=== PATIENT | female | born 1935 | race Caucasian/White ===

== ENCOUNTER 2020-02-10 19:33 | Emergency (ER) | payer MEDICARE, MEDICAID ==
[~2020-02-10] VITALS: Ht 142.2 cm; Wt 73.0 kg
--- NOTE | 2020-02-10 20:08 | NUR ---
PT TO ROOM 7 PER DEN. PT WAS USING HER WALKER, AND WAS AMBULATING TO THE MAILBOX WHEN HER KNEES GAVE. SHE STATES "I DID NOT FALL ALL THE WAY DOWN, I USED MY WALKER TO GO TO MY KNEES. I PUSHED MY LIFE ALERT AND THE SQUAD CAME AND HELPED ME INTO MY HOUSE, AFTER THEY LEFT I NOTICED MY RIGHT ANKLE WAS SWOLLEN." PT IS A/O X3. RN PLACED PATIENT ON 2L OXYGEN PER NC DUE TO SATS IN THE HIGH 80'S LOW 90'S. [facility] NOT WANT TO GO TO [facility],"I CAN LIVE ALONE JUST FINE" XRAY IN AT BEDSIDE.
--- NOTE | 2020-02-10 20:41 | NUR ---
OXYGEN OFF TO ENSURE PATIENT SATS REMAIN GREATER 90%. VITALS CHARTED. PT REMAINS A/O X4.
--- NOTE | 2020-02-10 20:51 | NUR ---
PA AND TECH IN TO WRAP ANKLE. PA INFORMS PATIENT THAT SHE WILL BE DISCHARGED. PATIENT CALLING A CAB FOR TRANSPORTATION HOME.
--- NOTE | 2020-02-10 21:03 | NUR ---
DISCHARGE INSTRUCTIONS GIVEN TO PATIENT. PT VERBALIZES UNDERSTANDING OF ALL INSTRUCTIONS AND FOLLOW UP. PT OUT OF ED PER WHEELCHAIR. WALKER WITH PATIENT.
[2020-02-10 21:04] VITALS: BP 122/75
== END 2020-02-10 21:07 | disposition home or self-care (01) ==
LOC: ED 20:25
DX: S93.491A Sprain of other ligament of right ankle, initial encounter (principal); I10 Essential (primary) hypertension; E11.9 Type 2 diabetes mellitus without complications; X50.1XXA Overexertion from prolonged static or awkward postures, initial encounter; Y93.89 Activity, other specified; Y92.098 Other place in other non-institutional residence as the place of occurrence of the external cause; Y99.8 Other external cause status
CPT/HCPCS: 99283

== ENCOUNTER 2020-03-05 07:05 | Emergency (ER) | payer MEDICARE, MEDICAID ==
[~2020-03-05] VITALS: Ht 142.2 cm; Wt 74.0 kg
--- NOTE | 2020-03-05 07:34 | NUR ---
PT BIB [facility] AFTER [facility] WHILE USING PT'S FRONT WALKER. PT REPORTS RIGHT LEG GAVE OUT AND SHE LANDED MOSTLY ON HER RIGHT LEG. PT DENIES HEAD OR NECK PAIN. PT DENIES CP, DIZZINESS, SOB PRIOR TO FALL. PT TO RADIOLOGY.
--- NOTE | 2020-03-05 07:45 | NUR ---
PT OFFERED MASK WHILE PT IN THE ER AND SHE REFUSED STATING "I CAN'T BREATHE WITH THE MASK ON."
--- NOTE | 2020-03-05 07:55 | NUR ---
PT STILL IN RAD.
[2020-03-05 08:05] LABS: BASOPHILS # (AUTO) 0.02 x10^3/uL (0-0.1); BASOPHILS % (AUTO) 0 % (0-1); EOSINOPHILS # (AUTO) 0.23 x10^3/uL (0-0.4); EOSINOPHILS % (AUTO) 2 % (1-7); LYMPHOCYTES # (AUTO) 1.85 x10^3/uL (1-3.4); LYMPHOCYTES % (AUTO) 15 % (22-44); MD NO; MEAN CORPUSCULAR HEMOGLOBIN 26.3 pg (27.0-34.8); MEAN CORPUSCULAR HGB CONC 32.7 g/dL (32.4-35.8); MEAN CORPUSCULAR VOLUME 80.4 fL (80-100); MEAN PLATELET VOLUME 7.8 fL (7.4-10.4); MONOCYTES # (AUTO) 1.01 x10^3/uL (0.2-0.8); MONOCYTES % (AUTO) 8 % (2-9); NEUTROPHILS # (AUTO) 9.04 x10^3/uL (1.8-6.8); NEUTROPHILS % (AUTO) 74 % (42-75); PLATELET COUNT 389 x10^3/uL (130-400); RED BLOOD COUNT 5.85 x10^6/uL (3.82-5.3); RED CELL DISTRIBUTION WIDTH 18.8 % (9.6-15.2)
[2020-03-05 08:19] LABS: ALANINE AMINOTRANSFERASE 14 U/L (12-78); ALBUMIN 3.6 g/dL (3.4-5.0); ANION GAP 7 mmol/L (5-15); CALCIUM 9.3 mg/dL (8.5-10.1); CHLORIDE 110 mmol/L (98-107); CREATININE 0.56 mg/dL (0.55-1.02)
[2020-03-05 08:21] LABS: ALKALINE PHOSPHATASE 65 U/L (45-117); BILIRUBIN,TOTAL 0.4 mg/dL (0.2-1.0); TOTAL PROTEIN 7.7 g/dL (6.4-8.2)
[2020-03-05 09:00] VITALS: BP 130/53
--- NOTE | 2020-03-05 09:00 | NUR ---
PT UP TO BEDSIDE COMMODE. PT TO BE ADMITTED.
[2020-03-05] MEDS ORDERED: ALBU8.5H8 INH (09:11)
[2020-03-05] MEDS ORDERED: ELIQUIS PO (09:11)
[2020-03-05] MEDS ORDERED: METFORMIN PO (09:11)
[2020-03-05] MEDS ORDERED: ATORVASTATIN PO (09:11)
[2020-03-05] MEDS ORDERED: OMEP-110 PO (09:11)
--- NOTE | 2020-03-05 10:18 | NUR ---
PT REQUESTING TO LEAVE STATING" I AM FINE. I KNOW WHAT HAPPENED AND MY KNEE GAVE OUT. I HAVE TWO CATS TO TAKE CARE OF." DR. STALLWORTH AWARE.
== END 2020-03-05 10:39 | disposition left against medical advice (07) ==
LOC: ED 08:15 → UNDOADMIN 09:51 → EDIP 09:51 → ED 10:39
DX: S83.91XA Sprain of unspecified site of right knee, initial encounter (principal); S80.11XA Contusion of right lower leg, initial encounter; R29.810 Facial weakness; J44.9 Chronic obstructive pulmonary disease, unspecified; K21.9 Gastro-esophageal reflux disease without esophagitis; I10 Essential (primary) hypertension; E78.5 Hyperlipidemia, unspecified; E11.9 Type 2 diabetes mellitus without complications; Z90.710 Acquired absence of both cervix and uterus; Z88.5 Allergy status to narcotic agent; Z90.49 Acquired absence of other specified parts of digestive tract; Z87.891 Personal history of nicotine dependence; W18.30XA Fall on same level, unspecified, initial encounter; Y93.89 Activity, other specified; Y92.009 Unspecified place in unspecified non-institutional (private) residence as the place of occurrence of the external cause; Y99.8 Other external cause status
CPT/HCPCS: 36415; 70450; 80053; 85025; 99285

== ENCOUNTER 2020-07-30 23:26 | Emergency (ER) | payer MEDICARE, MEDICAID ==
[~2020-07-30] VITALS: Ht 142.2 cm; Wt 80.0 kg
[~2020-07-30 23:26] MED LIST: ALBU8.5H8 INH; ATORVASTATIN PO; ELIQUIS PO; METFORMIN PO; OMEP-110 PO
[2020-07-30] MEDS ORDERED: PLEASE ENTER HEIGHT AND WEIGHT MC SCH (23:45)
[2020-07-30 23:56] LABS: BASOPHILS # (AUTO) 0.03 x10^3/uL (0-0.1); BASOPHILS % (AUTO) 0 % (0-1); EOSINOPHILS # (AUTO) 0.21 x10^3/uL (0-0.4); EOSINOPHILS % (AUTO) 2 % (1-7); LYMPHOCYTES # (AUTO) 1.86 x10^3/uL (1-3.4); LYMPHOCYTES % (AUTO) 17 % (22-44); MD NO; MEAN CORPUSCULAR HEMOGLOBIN 27.5 pg (27.0-34.8); MEAN CORPUSCULAR HGB CONC 33.4 g/dL (32.4-35.8); MEAN CORPUSCULAR VOLUME 82.3 fL (80-100); MEAN PLATELET VOLUME 7.9 fL (7.4-10.4); MONOCYTES # (AUTO) 0.84 x10^3/uL (0.2-0.8); MONOCYTES % (AUTO) 8 % (2-9); NEUTROPHILS # (AUTO) 7.84 x10^3/uL (1.8-6.8); NEUTROPHILS % (AUTO) 73 % (42-75); PLATELET COUNT 389 x10^3/uL (130-400); RED BLOOD COUNT 5.95 x10^6/uL (3.82-5.3)
[2020-07-31] MEDS ORDERED: SODIUM CHLORIDE FLUSH 10ML SYR IVF ONE
[2020-07-31 00:07] LABS: ALANINE AMINOTRANSFERASE 30 U/L (12-78); ALBUMIN 3.8 g/dL (3.4-5.0); ANION GAP 9 mmol/L (5-15); CALCIUM 10.7 mg/dL (8.5-10.1); CHLORIDE 102 mmol/L (98-107); CREATININE 0.69 mg/dL (0.55-1.02)
[2020-07-31] MEDS ORDERED: METHYLNALTREXONE 12 MG/0.6 ML SYR SQ ONE ×2 (00:07)
[2020-07-31 00:10] LABS: ALKALINE PHOSPHATASE 67 U/L (45-117); BILIRUBIN,TOTAL 0.5 mg/dL (0.2-1.0); TOTAL PROTEIN 8.2 g/dL (6.4-8.2)
--- NOTE | 2020-07-31 01:00 | NUR ---
PATIENT RESTING IN BED, AROUSABLE TO VERBAL STIMULI. SHE STILL ENDORSES ABDOMINAL DISCOMFORT. WILL CONTINUE TO MONITOR.
[2020-07-31] MEDS ORDERED: OXYcodone/APAP 10/325MG TABLET ONE (01:48)
[2020-07-31] MEDS ORDERED: OXYcodone/APAP 10/325MG TABLET PO ONE (02:00)
--- NOTE | 2020-07-31 02:27 | NUR ---
PATIENT RESTING IN BED, AROUSABLE TO VERBAL STIMULI. SHE STILL ENDORSES ABDOMINAL DISCOMFORT. SHE DENIES NEED FOR TOILETING AT THIS TIME. WILL CONTINUE TO MONITOR.
[2020-07-31 02:28] VITALS: BP 126/68
--- NOTE | 2020-07-31 03:30 | NUR ---
SPOKE WITH FAMILY MEMBER AT PROVIDED PHONE NUMBER. THEY STATED THAT THEY WOULD BE HOME AND AWAITING THE PATIENT'S ARRIVAL. THEY WILL ASSIST HER INSIDE.
[2020-07-31] MEDS ORDERED: OMNIPAQUE 350 MG/ML, 100ML BOTTLE ONE (05:59)
== END 2020-07-31 04:05 | disposition home or self-care (01) ==
LOC: ED 07-31 00:09
DX: K59.00 Constipation, unspecified (principal); R10.84 Generalized abdominal pain; R11.0 Nausea; R94.31 Abnormal electrocardiogram [ECG] [EKG]; I10 Essential (primary) hypertension; J44.9 Chronic obstructive pulmonary disease, unspecified; Z87.891 Personal history of nicotine dependence; Z90.710 Acquired absence of both cervix and uterus
CPT/HCPCS: 36415; 74177; 80053; 83690; 85025; 93005; 96372; 99285; Q9967

== ENCOUNTER 2020-08-22 10:11 | Inpatient (IN) | payer MEDICARE, MEDICAID ==
[~2020-08-22] VITALS: Ht 142.2 cm; Wt 73.7 kg
--- NOTE | 2020-08-22 10:28 | NUR ---
pt biba, report taken from ems. pt c/o sternal cp onset 2 days ago after striking chest on chair with mechanical glf. pt denies neck pain, denies head injury, denies loc. pt also notes exacerbation of sob (has copd) this am. pt only able to speak approx 4 words without taking breath pt has chronic cough, denies any other sx all monitors in place, call light in reach, ekg taken on arrival by edt. cxr ordered, awaiting further orders at this time.
[2020-08-22] MEDS ORDERED: NEOSPORIN OINT. PKT 1 PACKET ONE (10:43)
--- NOTE | 2020-08-22 10:50 | NUR ---
PT TAKEN TO CT SCAN. DAUGHTER WHO IS WAITING IN LOBBY GIVEN UPDATE.
[2020-08-22] MEDS ORDERED: MORPHINE SULFATE 4 MG/ML, 1ML IVPush PRN (12:00)
[2020-08-22] MEDS ORDERED: CEFTRIAXONE PMX 1GM/50ML 50 ML IVPB ONE (12:00)
[2020-08-22] MEDS ORDERED: MORPHINE SULFATE 4 MG/ML, 1ML ONE (12:14)
[2020-08-22] MEDS ORDERED: ONDANSETRON 2MG/ML, 2ML ONE (12:14)
[2020-08-22] MEDS ORDERED: CEFTRIAXONE PMX 1GM/50ML 50 ML ONE (12:14)
[2020-08-22] MEDS ORDERED: DOXYCYCLINE 100MG TABLET ONE (12:15)
[2020-08-22 12:31] LABS: MEAN CORPUSCULAR HEMOGLOBIN 27.6 pg (27.0-34.8); MEAN CORPUSCULAR HGB CONC 32.6 g/dL (32.4-35.8); PLATELET COUNT 351 x10^3/uL (130-400); RED BLOOD COUNT 5.47 x10^6/uL (3.82-5.3)
[2020-08-22 12:39] LABS: ALBUMIN 3.3 g/dL (3.4-5.0); ANION GAP 5 mmol/L (5-15); CALCIUM 9.4 mg/dL (8.5-10.1); CHLORIDE 106 mmol/L (98-107)
[2020-08-22] MEDS ORDERED: stool softener PO (12:40)
[2020-08-22] MEDS ORDERED: MULT-658 PO (12:40)
[2020-08-22] MEDS ORDERED: calcium PO (12:40)
--- NOTE | 2020-08-22 12:42 | NUR ---
pt medicated per emar for sternal pain. pt and daughter updated with poc and results by RN and MD, plan to admit, pt agreeable. pt unable to recall all home meds, RN to call pts pharmacy [facility] [address]. all monitors in place, nsr on engine monitor. pt a&o, resps even and unlabored, now able to speak in full sentences without taking a breath.
[2020-08-22 12:56] LABS: BASOPHILS # (AUTO) 0.06 x10^3/uL (0-0.1); BASOPHILS % (AUTO) 0 % (0-1); EOSINOPHILS % (AUTO) 1 % (1-7); LYMPHOCYTES # (AUTO) 1.35 x10^3/uL (1-3.4); LYMPHOCYTES % (AUTO) 10 % (22-44); MD SCAN; MONOCYTES # (AUTO) 1.12 x10^3/uL (0.2-0.8); MONOCYTES % (AUTO) 8 % (2-9); NEUTROPHILS # (AUTO) 11.39 x10^3/uL (1.8-6.8); NEUTROPHILS % (AUTO) 81 % (42-75)
[2020-08-22] MEDS ORDERED: DOXYCYCLINE 100MG TABLET PO ONE (13:00)
[2020-08-22] MEDS ORDERED: SODIUM CHLORIDE FLUSH 10ML SYR IVF ONE (13:00)
[2020-08-22] MEDS ORDERED: SYMBICORT INH (13:36)
[2020-08-22] MEDS ORDERED: PANT40TA6 PO (13:36)
[2020-08-22] MEDS ORDERED: ATOR20TA37 PO (13:36)
[2020-08-22] MEDS ORDERED: LISINOPRIL PO (13:36)
[2020-08-22] MEDS ORDERED: APIX5TAB PO (13:36)
[2020-08-22] MEDS ORDERED: FAMO40TA61 PO (13:36)
[2020-08-22] MEDS ORDERED: METF500T17 PO (13:36)
[2020-08-22] MEDS ORDERED: LEVO100T PO (13:36)
[2020-08-22] MEDS ORDERED: METO25TA35 PO (13:36)
[2020-08-22] MEDS ORDERED: FLONASE NAS (13:36)
[2020-08-22] MEDS ORDERED: LINA145C PO (13:36)
[2020-08-22] MEDS ORDERED: ALBUTEROL INH (13:36)
[2020-08-22] MEDS ORDERED: SPIRIVA INH (13:36)
[2020-08-22] MEDS ORDERED: OXYC-307 PO (13:36)
--- NOTE | 2020-08-22 13:36 | NUR ---
REPORT GIVEN TO RECEIVING RN ANGELA. MED REC COMPLETED AFTER CALLING PT'S PHARMACY. PT AWAITING TRANSPORT TO MED SURG AT THIS TIME. PER EDMD RAFAL, PT IS NOT SUSPICIOUS FOR COVID AND COVID TEST NOT INDICATED AT THIS TIME.
--- NOTE | 2020-08-22 13:45 | NUR ---
[facility] AT BEDSIDE TO TRANSPORT PT TO MED SURG FLOOR. PIV SITE TO LEFT UPPER ARM REDDENED, STILL FLUSHES WELL AND HAS GOOD BLOOD RETURN. PIV PLACED TO RT HAND FOR ADDITIONAL ACCESS. PT IS A&O, RESPS EVEN AND UNLABORED, STATES PAIN RESOLVED. UPDATED REPORT TO [facility] AT BEDSIDE.
[2020-08-22 14:22] VITALS: BP 135/78
[2020-08-22 14:26] VITALS: BP 135/78
[2020-08-22] MEDS ORDERED: hydrALAzine 20 MG/ML, 1ML IVPush PRN (15:30)
[2020-08-22] MEDS ORDERED: LABETALOL 5MG/ML, 20ML IVPush PRN (15:30)
[2020-08-22] MEDS ORDERED: morphine SULFATE 10 MG/ML, 1ML IVPush PRN (15:30)
[2020-08-22] MEDS ORDERED: PROMETHAZINE 25 MG/ML, 1ML IM PRN (15:30)
[2020-08-22] MEDS ORDERED: ONDANSETRON 2MG/ML, 2ML IVPush PRN (15:30)
[2020-08-22] MEDS: OXYcodone/APAP 5/325MG TABLET PO PRN ×4 (16:30→23:46)
[2020-08-22] MEDS ORDERED: CEFTRIAXONE PMX 1GM/50ML 50 ML IV SCH (17:00)
[2020-08-22] MEDS: metFORMIN 500 MG TABLET PO SCH (17:22)
[2020-08-22 19:36] VITALS: BP 104/65
[2020-08-22 20:08] VITALS: BP 125/78
[2020-08-22] MEDS: APIXABAN 5 MG TABLET PO SCH (20:15)
[2020-08-22] MEDS: ATORVASTATIN 20 MG TABLET PO SCH (20:15)
[2020-08-22] MEDS: METOPROLOL TARTRATE 25 MG TAB PO SCH (20:15)
[2020-08-22] MEDS: DOXYCYCLINE 100MG TABLET PO SCH (23:50)
[2020-08-23 01:45] VITALS: BP 157/81
[2020-08-23 05:01] LABS: CHLORIDE 108 mmol/L (98-107)
[2020-08-23 05:02] LABS: BASOPHILS # (AUTO) 0.02 x10^3/uL (0-0.1); BASOPHILS % (AUTO) 0 % (0-1); EOSINOPHILS # (AUTO) 0.22 x10^3/uL (0-0.4); EOSINOPHILS % (AUTO) 2 % (1-7); LYMPHOCYTES # (AUTO) 1.56 x10^3/uL (1-3.4); LYMPHOCYTES % (AUTO) 14 % (22-44); MD NO; MEAN CORPUSCULAR HEMOGLOBIN 27.7 pg (27.0-34.8); MEAN CORPUSCULAR HGB CONC 33.1 g/dL (32.4-35.8); MEAN PLATELET VOLUME 7.9 fL (7.4-10.4); MONOCYTES # (AUTO) 0.85 x10^3/uL (0.2-0.8); MONOCYTES % (AUTO) 8 % (2-9); NEUTROPHILS # (AUTO) 8.22 x10^3/uL (1.8-6.8); NEUTROPHILS % (AUTO) 76 % (42-75); PLATELET COUNT 347 x10^3/uL (130-400); RED BLOOD COUNT 5.28 x10^6/uL (3.82-5.3)
[2020-08-23 05:06] LABS: ALANINE AMINOTRANSFERASE 18 U/L (12-78); ALKALINE PHOSPHATASE 60 U/L (45-117); ANION GAP 6 mmol/L (5-15); BILIRUBIN,TOTAL 0.4 mg/dL (0.2-1.0); CREATININE 0.54 mg/dL (0.55-1.02); TOTAL PROTEIN 6.9 g/dL (6.4-8.2)
[2020-08-23] MEDS: PANTOPRAZOLE 40MG TABLET PO SCH (05:24)
[2020-08-23] MEDS: LEVOTHYROXINE 100 MCG TABLET PO SCH (05:24)
[2020-08-23] MEDS: OXYcodone/APAP 5/325MG TABLET PO PRN ×4 (05:26→20:07)
[2020-08-23 06:42] VITALS: BP 156/78
[2020-08-23] MEDS: APIXABAN 5 MG TABLET PO SCH ×2 (08:59→20:05)
[2020-08-23] MEDS: FAMOTIDINE 20 MG TABLET PO SCH (08:59)
[2020-08-23] MEDS: metFORMIN 500 MG TABLET PO SCH ×2 (08:59→16:16)
[2020-08-23] MEDS: METOPROLOL TARTRATE 25 MG TAB PO SCH ×2 (08:59→20:05)
[2020-08-23] MEDS: DOXYCYCLINE 100MG TABLET PO SCH ×2 (08:59→20:05)
[2020-08-23] MEDS: SENNA/DOCUSATE TABLET PO SCH ×2 (08:59→20:05)
[2020-08-23] MEDS ORDERED: FAMOTIDINE 40 MG TABLET PO SCH (09:00)
[2020-08-23 12:40] VITALS: BP 152/80
[2020-08-23 18:36] VITALS: BP 124/69
[2020-08-23] MEDS: ATORVASTATIN 20 MG TABLET PO SCH (20:05)
[2020-08-23] MEDS ORDERED: MAGNESIUM HYDROXIDE 8%, 30ML UDC PO SCH (21:00)
[2020-08-24 00:07] VITALS: BP 135/76
[2020-08-24] MEDS: OXYcodone/APAP 5/325MG TABLET PO PRN ×3 (04:28→13:21)
[2020-08-24] MEDS: LEVOTHYROXINE 100 MCG TABLET PO SCH (05:29)
[2020-08-24] MEDS: PANTOPRAZOLE 40MG TABLET PO SCH (05:29)
[2020-08-24 05:58] LABS: BASOPHILS # (AUTO) 0.01 x10^3/uL (0-0.1); BASOPHILS % (AUTO) 0 % (0-1); EOSINOPHILS # (AUTO) 0.29 x10^3/uL (0-0.4); EOSINOPHILS % (AUTO) 4 % (1-7); LYMPHOCYTES % (AUTO) 21 % (22-44); MD NO; MEAN CORPUSCULAR HEMOGLOBIN 27.4 pg (27.0-34.8); MEAN CORPUSCULAR HGB CONC 32.3 g/dL (32.4-35.8); MEAN PLATELET VOLUME 7.9 fL (7.4-10.4); MONOCYTES # (AUTO) 0.74 x10^3/uL (0.2-0.8); MONOCYTES % (AUTO) 10 % (2-9); NEUTROPHILS % (AUTO) 65 % (42-75); PLATELET COUNT 361 x10^3/uL (130-400); RED BLOOD COUNT 5.17 x10^6/uL (3.82-5.3); RED CELL DISTRIBUTION WIDTH 17.7 % (9.6-15.2)
[2020-08-24 06:45] VITALS: BP 119/70
[2020-08-24] MEDS: SENNA/DOCUSATE TABLET PO SCH (08:54)
[2020-08-24] MEDS: metFORMIN 500 MG TABLET PO SCH ×2 (08:54→17:00)
[2020-08-24] MEDS: METOPROLOL TARTRATE 25 MG TAB PO SCH (08:55)
[2020-08-24] MEDS: APIXABAN 5 MG TABLET PO SCH (08:55)
[2020-08-24] MEDS: FAMOTIDINE 20 MG TABLET PO SCH (08:55)
[2020-08-24] MEDS: DOXYCYCLINE 100MG TABLET PO SCH (08:57)
[2020-08-24] MEDS ORDERED: AMOXICILLIN/CLAV 875-125MG TABLET PO SCH (09:00)
[2020-08-24 13:22] VITALS: BP 133/78
[2020-08-24] MEDS ORDERED: AMOX1TAB12 PO (16:50)
[2020-08-24] MEDS ORDERED: DOXY100T PO (16:50)
== END 2020-08-24 18:26 | disposition home or self-care (01) | DRG 871 ==
LOC: ED 11:36 → EDIP 12:28 → 4NW 14:03
PROVIDERS: ADMIT Internal Medicine; ATTEND Internal Medicine
DX: A41.9 Sepsis, unspecified organism (principal); J15.6 Pneumonia due to other Gram-negative bacteria; S22.20XA Unspecified fracture of sternum, initial encounter for closed fracture; S52.209A Unspecified fracture of shaft of unspecified ulna, initial encounter for closed fracture; E87.1 Hypo-osmolality and hyponatremia; J44.0 Chronic obstructive pulmonary disease with (acute) lower respiratory infection; E03.9 Hypothyroidism, unspecified; E11.9 Type 2 diabetes mellitus without complications; E78.5 Hyperlipidemia, unspecified; E86.1 Hypovolemia; I10 Essential (primary) hypertension; I48.91 Unspecified atrial fibrillation; Z66 Do not resuscitate; K21.9 Gastro-esophageal reflux disease without esophagitis; G89.29 Other chronic pain; M54.9 Dorsalgia, unspecified; R29.810 Facial weakness; W18.39XA Other fall on same level, initial encounter; Z90.710 Acquired absence of both cervix and uterus; Z87.891 Personal history of nicotine dependence; Y93.89 Activity, other specified; Y92.89 Other specified places as the place of occurrence of the external cause; Y99.8 Other external cause status; Z88.5 Allergy status to narcotic agent; Z88.8 Allergy status to other drugs, medicaments and biological substances
CPT/HCPCS: 36415; 71045; 71250; 80048; 80053; 82040; 83605; 84145; 84443; 85025; 87040; 93005; 93922; 96374; 96375; 99285; G0378; J0696; J2405; J2270

== ENCOUNTER 2020-12-30 05:57 | Emergency (ER) | payer MEDICARE, MEDICAID ==
[~2020-12-30] VITALS: Ht 142.2 cm; Wt 70.0 kg
[~2020-12-30 05:57] MED LIST changes: +ALBUTEROL INH; +AMOX1TAB12 PO; +APIX5TAB PO; +ATOR20TA37 PO; +DOXY100T PO; +FAMO40TA61 PO; +FLONASE NAS; +LEVO100T PO; +LINA145C PO; +LISINOPRIL PO; +METF500T17 PO; +METO25TA35 PO; +MULT-658 PO; +OXYC-380 PO; +PANT40TA6 PO; +SPIRIVA INH; +SYMBICORT INH; +calcium PO; +stool softener PO
--- NOTE | 2020-12-30 06:00 | NUR ---
patient resting in bed with labored breathing d/t pain. IV in place on arrival. changed into hospital gown. coccyx assessed and no signs of injury
[2020-12-30] MEDS ORDERED: FENTANYL PF 100 MCG/2ML ONE (06:22)
--- NOTE | 2020-12-30 06:25 | NUR ---
patient in XR
[2020-12-30] MEDS ORDERED: FENTANYL PF 100 MCG/2ML IV ONE (06:30)
[2020-12-30] MEDS ORDERED: SODIUM CHLORIDE FLUSH 10ML SYR IVF ONE (06:30)
--- NOTE | 2020-12-30 07:04 | NUR ---
report given to Karine KIRK
--- NOTE | 2020-12-30 07:40 | NUR ---
Patient repositioned for comfort, 2LNC and pian improved with previous fentyl dose.
--- NOTE | 2020-12-30 08:23 | NUR ---
Pt ambulates with awalker with slow steady gait. sitting in chair. ERp aware.
[2020-12-30 09:13] VITALS: BP 146/76
== END 2020-12-30 09:32 | disposition home or self-care (01) ==
LOC: ED 07:19
DX: G89.11 Acute pain due to trauma (principal); M54.5 Low back pain; M51.36 Other intervertebral disc degeneration, lumbar region; I10 Essential (primary) hypertension; E11.9 Type 2 diabetes mellitus without complications; J44.9 Chronic obstructive pulmonary disease, unspecified; Z87.891 Personal history of nicotine dependence; W01.0XXA Fall on same level from slipping, tripping and stumbling without subsequent striking against object, initial encounter; Y93.89 Activity, other specified; Y92.89 Other specified places as the place of occurrence of the external cause; Y99.8 Other external cause status
CPT/HCPCS: 72110; 72220; 96374; 99284; J3010